=== PATIENT | female | born 1950 | race Caucasian/White ===

== ENCOUNTER 2018-09-23 | Outpatient (CLI) | payer MEDICARE, OTHER | END 2018-09-23 07:31 | disposition home or self-care (01) | DX: Z53.9 Procedure and treatment not carried out, unspecified reason (principal) ==

== ENCOUNTER 2019-07-05 06:15 | Outpatient (CLI) | payer MEDICARE, OTHER | END 2019-07-05 06:16 | disposition critical access hospital (66) | LOC: EMS 06:15 | PROVIDERS: ATTEND Surgery | DX: R51 Headache (principal); H53.8 Other visual disturbances | CPT/HCPCS: A0425; A0429 ==

== ENCOUNTER 2019-08-31 08:00 | Outpatient (CLI) | payer MEDICARE, OTHER | END 2019-08-31 23:59 | disposition home or self-care (01) | LOC: LAB.R 08:00 | PROVIDERS: ATTEND Nurse Practitioner Family | DX: N39.0 Urinary tract infection, site not specified (principal) | CPT/HCPCS: 87077; 87086; 87181 ==